=== PATIENT | female | born 1965 | race Asian ===

== ENCOUNTER → 2016-12-10 | Outpatient (CLI) | payer OTHER ==
--- NOTE | 2016-12-10 14:02 | RAD ---
EXAM: Chest, 2 views. HISTORY: Fatigue. COMPARISON: None. FINDINGS: Frontal and lateral views of the chest are obtained. There is no infiltrate, effusion or pneumothorax. There are few calcified granulomas. There is slight hyperinflation due to respiratory effort or emphysema. IMPRESSION: No acute pulmonary finding.
--- NOTE | 2016-12-10 15:02 | RAD ---
DATE: 12/10/2016 EXAM: DIGITAL SCREEN BILAT W/CAD HISTORY: 51-year-old female presents for baseline mammography COMPARISON: None. TECHNIQUE: Full field digital craniocaudal and mediolateral oblique views of both breasts are obtained. This study was interpreted with the benefit of Computerized Aided Detection (CAD). FINDINGS: Breast parenchymal composition: Level C. The breast parenchyma heterogeneously dense, which could reduce sensitivity of mammography. There is no suspicious mass, calcification or architectural distortion within either breast. IMPRESSION: No suspicious mammographic finding. BI-RADS CATEGORY: 2 BENIGN FINDING RECOMMENDED FOLLOW-UP: 12M 12 MONTH FOLLOW-UP PQRS compliance statement: Patient information was entered into a reminder system with a target due date in one year for the next mammogram. Mammography is a sensitive method for finding small breast cancers, but it does not detect them all and is not a substitute for careful clinical examination. A negative mammogram does not negate a clinically suspicious finding and should not result in delay in biopsying a clinically suspicious abnormality. "Our facility is accredited by the [employer] Mammography Program."
== END | disposition home or self-care (01) ==
LOC: MAMMO 13:24
PROVIDERS: ATTEND Internal Medicine
DX: Z12.31 Encounter for screening mammogram for malignant neoplasm of breast (principal); R53.83 Other fatigue
CPT/HCPCS: 71020; G0202; 77067

== ENCOUNTER 2019-03-18 15:39 | Emergency (ER) | payer OTHER ==
[~2019-03-18] VITALS: Ht 157.5 cm; Wt 55.3 kg
[2019-03-18 15:46] VITALS: BP 138/69
[2019-03-18] MEDS ORDERED: AMOX1TAB10 PO (16:02)
--- NOTE | 2019-03-18 16:03 | PHYS DOC ---
Adult General Chief Complaint Chief Complaint: ANIMAL BITE [facility] HPI Patient is a 54 year old female who presents with her neighbor's black dog was in her backyard and bit her in the left upper thigh this afternoon. Patient's tetanus status is unknown. Dog's vaccination status is unknown. Patient rates he r pain a 5 out of 10. She is ambulatory. Review of Systems Review of Systems Constitutional: Denies fever or chills [] Eyes: Denies change in visual acuity, redness, or eye pain [] HENT: Denies nasal congestion or sore throat [] Respiratory: Denies cough or shortness of breath [] Cardiovascular: No additional information not addressed in HPI [] GI: Denies abdominal pain, nausea, vomiting, bloody stools or diarrhea [] : Denies dysuria or hematuria [] Musculoskeletal: Denies back pain or joint pain [] Integument: dog bite upper left thigh. Denies rash or skin lesions [] Neurologic: Denies headache, focal weakness or sensory changes [] Endocrine: Denies polyuria or polydipsia [] All other systems were reviewed and found to be within normal limits, except as documented in this note. Current Medications Current Medications Current Medications Medications (Trade) Dose Ordered Sig/Laine Start Time Stop Time Status Last Admin Dose Admin Diphtheria/ Tetanus/Acell Pertussis (Boostrix) 0.5 ml ONCE ONCE 03/18/19 16:15 03/18/19 16:16 Allergies Allergies Allergies Coded Allergies Type Severity Reaction Last Updated Verified No Known Drug Allergies 03/18/19 No Physical Exam Physical Exam Constitutional: Well developed, well nourished, no acute distress, non-toxic appearance. [] HENT: Normocephalic, atraumatic, bilateral external ears normal, oropharynx moist, no oral exudates, nose normal. [] Eyes: PERRLA, EOMI, conjunctiva normal, no discharge. [] Neck: Normal range of motion, no tenderness, supple, no stridor. [] Cardiovascular:Heart rate regular rhythm, no murmur [] Lungs & Thorax: Bilateral breath sounds clear to auscultation [] Abdomen: Bowel sounds normal, soft, no tenderness, no masses, no pulsatile masses. [] Skin: 1mm puncture wound and 2 superficial scratches from dog bite to upper left thigh. Warm, dry, no erythema, no rash. [] Back: No tenderness, no CVA tenderness. [] Extremities: No tenderness, no cyanosis, no clubbing, ROM intact, no edema. [] Neurologic: Alert and oriented X 3, normal motor function, normal sensory function, no focal deficits noted. [] Psychologic: Affect normal, judgement normal, mood normal. [] Current Patient Data Vital Signs Vital Signs Date Time Temp Pulse Resp B/P (MAP) Pulse Ox O2 Delivery O2 Flow Rate FiO2 03/18/19 15:46 98.3 66 16 138/69 (92) 97 Room Air 98.3 EKG EKG [] Radiology/Procedures Radiology/Procedures [] Course & Med Decision Making Course & Med Decision Making Patient is a 54 year old female who presents with her neighbor's black dog was in her backyard and bit her in the left upper thigh this afternoon. Patient's tetanus status is unknown. Dog's vaccination status is unknown. Patient rates her pain a 5 out of 10 and is achy. She is ambulatory with steady gait. Are too superficial red non-bleeding marie to the left upper thigh with one 1 mm puncture wound. The puncture wound is approximately .5mm in depth. There is slight 1+ swelling and bruising to the skin around the bite area on the left upper thigh. Pedal pulses are strong and palpable. Animal control is called. Wound is cleaned with normal saline and Chlorhexidine. Animal control has been called. Patient is told that if animal control notifies them that the dog has rabies that they must come back to ED for Rabies vaccination. Patient will receive a Boostrix in the ED. She will be sent home with Augmentin antibiotic. Patient follow-up with her primary care doctor the ED neck 48 hours to have a wound check. There are currently no signs of infection, only scant bleeding from the puncture wound. The wound is dressed by nurse. Dragon Disclaimer Dragon Disclaimer This electronic medical record was generated, in whole or in part, using a voice recognition dictation system. Departure Departure Impression: Primary Impression: Animal bite Disposition: HOME, SELF-CARE Condition: STABLE Referrals: LUIS STANFORD MD (PCP) Patient Instructions: Animal Bite Additional Instructions: Follow-up with her primary care doctor or return to the ED in 48 hours for a wound check. If animal control notifies you that the dog has rabies come back to ED to receive rabies vaccination. Take medication as prescribed. Return sooner or see her primary care if there are signs of infection such as increased redness and drainage from the wound or fever. Scripts Ibuprofen (IBUPROFEN) 600 Mg Tablet 600 MG PO PRN Q6HRS PRN for INFLAMMATION, #20 TAB Prov: TIFFANY RYAN APRN 03/18/19 Amoxicillin/Potassium Clav (AMOX TR-K CLV 500-125 MG TAB) 1 Each Tablet 1 TAB PO BID, #20 TAB Prov: TIFFANY RYAN APRN 03/18/19 TIFFANY RYAN APRN Mar 18, 2019 16:03
[2019-03-18] MEDS ORDERED: DIPHTH,PERTUSS(ACELL),TET TOX 0.5 ML DISP.SYRIN. VAX IM ONE (16:15)
[2019-03-18] MEDS ORDERED: IBUP-1007 PO (16:15)
== END 2019-03-18 16:46 | disposition home or self-care (01) ==
LOC: ER 15:39
DX: S71.132A Puncture wound without foreign body, left thigh, initial encounter (principal); W54.0XXA Bitten by dog, initial encounter; Y93.89 Activity, other specified; Y92.007 Garden or yard of unspecified non-institutional (private) residence as the place of occurrence of the external cause; Y99.8 Other external cause status
CPT/HCPCS: 99283

== ENCOUNTER → 2019-04-20 | Outpatient (CLI) | payer OTHER ==
[~2019-04-20] MED LIST: AMOX1TAB10 PO; IBUP-1007 PO
--- NOTE | 2019-04-20 14:46 | CARD ---
MR#: [id number] Date of Study: 04/20/2019 Ordering Physician: HAILY PIERRE, Referring Physician: HAILY PIERRE Tech: Joyce Bergeron RDCS APPROVED REPORT EXAM: Two-dimensional and M-mode echocardiogram with Doppler and color Doppler. Other Information Quality : Good INDICATION Palpitations 2D DIMENSIONS RVDd2.5 (2.9-3.5cm)Left Atrium(2D)2.7 (1.6-4.0cm) IVSd0.8 (0.7-1.1cm)Aortic Root(2D)2.7 (2.0-3.7cm) LVDd4.0 (3.9-5.9cm)LVOT Diameter2.0 (1.8-2.4cm) PWd0.8 (0.7-1.1cm)LVDs2.0 (2.5-4.0cm) FS (%) 30.0 %SV58.9 ml LVEF(%)60.0 (>50%) Aortic Valve AoV Peak Matthew.130.4cm/sAoV VTI24.7cm AO Peak GR.6.8mmHgLVOT Peak Matthew.121.7cm/s AO Mean GR.3mmHgAVA (VMAX)3.07cm2 KARY (VTI)3.20cm2 Mitral Valve MV E Wdjzfuar01.7cm/sMV DECEL [id number] MV A Khpaaykp68.5cm/sE/A Ratio1.6 Tricuspid Valve TR P. [id number]/sRAP GPHQWECX6twCn TR Peak Gr.98cfMmVAWM63isCu Pulmonary Vein S1 Iybnipkr37.0cm/sD2 Glkdjmsv35.3cm/s LEFT VENTRICLE The left ventricle is normal size. There is normal left ventricular wall thickness. The left ventricu lar systolic function is normal and the ejection fraction is within normal range. EF 55% There is nor mal LV segmental wall motion. The left ventricular diastolic function and filling is normal for age. RIGHT VENTRICLE The right ventricle is normal size. The right ventricular systolic function is normal. ATRIA The left atrium size is normal. The right atrium size is normal. The interatrial septum is intact wit h no evidence for an atrial septal defect or patent foramen ovale as noted on 2-D or Doppler imaging. AORTIC VALVE The aortic valve is calcified but opens well. Doppler and Color Flow revealed no significant aortic r egurgitation. There is no significant aortic valvular stenosis. MITRAL VALVE The mitral valve is calcified but opens well. There is no evidence of mitral valve prolapse. There is no mitral valve stenosis. Doppler and Color-flow revealed trace mitral regurgitation. TRICUSPID VALVE The tricuspid valve is normal in structure and function. Doppler and Color Flow revealed trace to mil d tricuspid regurgitation. The PA pressure was estimated at 24 mmHg. There is no tricuspid valve sten osis. PULMONIC VALVE The pulmonic valve is not well visualized. Doppler and Color Flow revealed mild pulmonic valvular reg urgitation. There is no pulmonic valvular stenosis. GREAT VESSELS The aortic root is normal in size. The ascending aorta is normal in size. The IVC is normal in size a nd collapses >50% with inspiration. PERICARDIAL EFFUSION There is no evidence of significant pericardial effusion. Critical Notification Critical Value: No <Conclusion> The left ventricular systolic function is normal and the ejection fraction is within normal range. EF 55% There is normal LV segmental wall motion. Signed by : Junaid Castle, Electronically Approved : 04/20/2019 14:46:00
== END | disposition home or self-care (01) ==
LOC: ECHO 13:27
PROVIDERS: ATTEND Internal Medicine Cardiovascular Disease
DX: I08.8 Other rheumatic multiple valve diseases (principal)
CPT/HCPCS: 93306